=== PATIENT | female | born 1975 | race Hispanic/Latino ===

== ENCOUNTER 2024-04-18 14:13 | Emergency (ER) | payer SELFPAY ==
--- OUTSIDE RECORDS SUMMARY | 2024-04-18 14:17 | XMS REPORT | Continuity of Care Document ---
Author Name Unknown Address [address] [place] [address] thconnect Address [address] [place] [id number] Care Team Providers Care Manager Of Environmental Services Name Role Phone Unavailable Unavailable Unavailable
[2024-04-18 15:22] LABS: Absolute Lymphocytes (CBC) 1.3 K/uL (0.7-4.9); Absolute Monocytes 0.6 K/uL (0.1-1.3); Absolute Neutrophil 6.8 K/uL (1.8-8.0); Basophils % 0.4 % (0-1.3); Eosinophils % 0.3 % (0-4.4); Hematocrit 37.8 % (36.0-45.0); Hemoglobin 13.4 g/dL (12.0-15.0); Lymphocytes % 14.7 % (15.3-44.8); MCH 32.6 pg (27.0-35.0); MCHC 35.5 g/dL (32.0-36.0); MCV 91.9 fL (80-100); Monocytes % 6.9 % (3.3-12.3); Neutrophils % 77.7 % (41.7-73.7); Platelets 232 thou/uL (152-406); RBC Red Blood Cell Count 4.11 M/uL (3.86-4.86)
[2024-04-18] MEDS ORDERED: FENTANYL CITR 100 MCG/2 ML ONE (15:22)
[2024-04-18] MEDS ORDERED: NA CHLORIDE 0.9% 1,000 ML ONE (15:22)
[2024-04-18] MEDS ORDERED: CEFTRIAXONE 1000 MG/VIAL ONE (15:22)
[2024-04-18] MEDS ORDERED: PHENAZOPYRIDINE 100MG TAB PO ONE (15:22)
[2024-04-18] MEDS ORDERED: ONDANSETRON 4 MG/2 ML VIAL ONE (15:22)
[2024-04-18 15:23] LABS: Specific Gravity 1.005 (1.005-1.030)
[2024-04-18 15:26] LABS: Specific Gravity 1.005 (1.005-1.030); Sqamous Epithelial <5 /HPF (None Seen); Urine Bacteria <20 /HPF (<20); Urine Bilirubin NEGATIVE (Negative); Urine Blood 3+ (OVER) (Negative); Urine Clarity Extremely Turbid (Clear); Urine Color Colorless (Yellow); Urine Crystals Unidentified Few /HPF (None Seen); Urine Culture Reflex Order REFLEXED; Urine Glucose NEGATIVE (Negative); Urine Ketones NEGATIVE (Negative); Urine Microscopic Reflex YN ORDER UMIC; Urine Nitrite NEGATIVE (Negative); Urine Protein TRACE (Negative); Urine RBC 21-50 /HPF (None Seen); Urine Urobilinogen Normal (Normal); Urine WBC >50 /HPF (<5); Urine WBC Clump Rare /HPF (None Seen); Urine Yeast (Budding) Trace /HPF (None Seen)
[2024-04-18 15:40] LABS: Albumin 3.5 g/dL (3.4-5.0); Albumin/Globulin Ratio 0.9 (1.1-1.8); Anion Gap 7.7 mEq/L (5.0-15.0); Bilirubin Total 1.1 mg/dL (0.2-1.0); Globulin 3.8 g/dL (2.3-3.5); Potassium 3.7 mEq/L (3.5-5.1); Protein, Total 7.3 g/dL (6.4-8.2)
--- NOTE | 2024-04-18 16:19 | RAD REPORT ---
EXAMINATION: CT Stone Protocol CLINICAL INDICATION: Female, 48 years old. FLANK PAIN TECHNIQUE: CT abdomen and pelvis was performed, without IV contrast, as per department protocol. Axia l, sagittal and coronal reconstructions were obtained. One or more of the following dose reduction techniques were used: Automated exposure control, adjustment of the mA and kV according to the patien t size, and iterative reconstruction. Unless otherwise specified, incidental findings do not require dedicated imaging follow-up. COMPARISON: No prior exam. FINDINGS: The lack of intravenous contrast limits the sensitivity of this exam for evaluation of solid visceral organs, vascular structures, and retroperitoneum. LOWER CHEST: The visualized lung bases are clear. LIVER: Normal in size and contour. No focal lesion. BILIARY SYSTEM: No suspicious abnormalities. SPLEEN: Normal size. No focal lesion. PANCREAS: No mass, ductal dilation, or kaushik-pancreatic fluid. ADRENALS: Normal; no mass. KIDNEYS AND URETERS: Normal size and contour. No hydronephrosis. URINARY BLADDER: Normal contour. GASTROINTESTINAL TRACT: No evidence of bowel obstruction, significant free fluid, free air or abscess . APPENDIX: Normal appendix. LYMPH NODES: No lymphadenopathy. MUSCULOSKELETAL: No acute or suspicious osseous abnormality. ADDITIONAL FINDINGS: Anterior wall exophytic uterine fibroid. IMPRESSION: No acute or concerning abnormalities in the abdomen or pelvis, with evaluation limited by lack of IV contrast.
[2024-04-18] MEDS ORDERED: SMZ./TMP. 800/160 MG TABLET ONE (16:32)
[2024-04-18] MEDS ORDERED: CIPROFLOXACIN HCL 500 MG TAB ONE (16:32)
--- NOTE | 2024-04-18 16:32 | ER ---
Nurse's Notes [facility] Name: Misa Mc Age: 48 yrs Sex: Female : 1975 Arrival Date: 04/18/2024 Time: 14:13 Bed 2 Private MD: Diagnosis: Dysuria;UTI/ Urinary tract infection, site not specified;Acute cystitis with hematuria Presentation: 04/18 14:34 Chief complaint: Patient states: LOWER BACK PAIN AND URINARY PAIN WITH BLEEDING STARTED db YESTERDAY. Coronavirus screen: Client denies travel out of the [place] in the last 14 days. At this time, the client does not indicate any symptoms associated with coronavirus-19. Ebola Screen: Patient negative for fever greater than or equal to 101.5 degrees Fahrenheit, and additional compatible Ebola Virus Disease symptoms Patient denies exposure to infectious person. Patient denies travel to an Ebola-affected area in the 21 days before illness onset. No symptoms or risks identified at this time. Initial Sepsis Screen: Does the patient meet any 2 criteria? No. Patient's initial sepsis screen is negative. Does the patient have a suspected source of infection? No. Patient's initial sepsis screen is negative. Risk Assessment: Do you want to hurt yourself or someone else? Patient reports no desire to harm self or others. Onset of symptoms was April 18, 2024. 14:34 Method Of Arrival: Ambulatory db 14:34 Acuity: JAIRO 3 db Triage Assessment: 14:35 General: Appears in no apparent distress. comfortable, Behavior is calm, cooperative. db Pain: Complains of pain in low back area. Neuro: Level of Consciousness is awake, alert, obeys commands, Oriented to person, place, time, situation. : Reports BLOOD IN URINE. 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 - Infectious Disease History:: Denies. - Social history:: Smoking status: Patient denies any tobacco usage or history of. - Family history:: not pertinent. Screenin:44 [facility] ED Fall Risk Assessment (Adult) History of falling in the last 3 months, ld1 including since admission No falls in past 3 months (0 pts) Confusion or Disorientation No (0 pts) Intoxicated or Sedated No (0 pts) Impaired Gait No (0 pts) Mobility Assist Device Used No (0 pt) Altered Elimination No (0 pt) Score/Fall Risk Level 0 - 2 = Low Risk Oriented to surroundings, Maintained a safe environment, Educated pt \T\ family on fall prevention, incl call for assistance when getting out of bed, Assessed \T\ reinforced patient's understanding of fall precautions, Provided non-skid footwear, Hourly rounding (assess needs \T\ fall precautionary measures) done, Used ambulatory aids as needed (educated on \T\ assisted with), Used gait belt as appropriate. Abuse screen: Denies threats or abuse. Denies injuries from another. Nutritional screening: No deficits noted. Tuberculosis screening: No symptoms or risk factors identified. Assessment: 16:44 General: Appears in no apparent distress. comfortable, Behavior is calm, cooperative, ld1 appropriate for age. Pain: Complains of pain in pelvis Pain does not radiate. Pain currently is 8 out of 10 on a pain scale. Quality of pain is described as throbbing. Neuro: Level of Consciousness is awake, alert, obeys commands, Oriented to person, place, time, situation, Appropriate for age. Cardiovascular: Capillary refill < 3 seconds Patient's skin is warm and dry. Respiratory: Airway is patent Respiratory effort is even, unlabored. GI: Abdomen is round non-distended. : Reports burning with urination, urgency, urinary frequency, vaginal bleeding that is. EENT: No signs and/or symptoms were reported regarding the EENT system. Derm: No signs and/or symptoms reported regarding the dermatologic system. Vital Signs: 14:34 BP 108 / 74; Pulse 80; Resp 16; Temp 98.1; Pulse Ox 98% ; Height 5 ft. 5 in. ; db 16:44 BP 132 / 74; Pulse 84; Resp 18; Pulse Ox 99% on R/A; ld1 ED Course: 14:16 Patient arrived in ED. al6 14:17 Figueroa Easlye MD is Attending Physician. radha 14:35 Triage completed. db 14:37 Arm band placed on Patient placed. db 15:00 CT Stone Protocol In Process Unspecified. EDMS 15:17 Jojo Franklin, ROCÍO is Primary Nurse. ld1 15:17 Initial lab(s) drawn, by me, sent to lab. Inserted saline lock: 20 gauge in right zm antecubital area, using aseptic technique. Blood collected. Flushed with 10 mL NS. 15:18 Urine Culture Sent. zm 15:18 PREGU Sent. zm 15:18 Urinalysis w/ reflexes Sent. zm 15:18 Comprehensive Metabolic Panel Sent. zm 15:18 CBC with Diff Sent. zm 15:18 Urine collected: clean catch specimen, peyton colored, blood tinged. zm 16:44 Patient has correct armband on for positive identification. Placed in gown. Bed in low ld1 position. Call light in reach. Side rails up X2. billboard poster on. Pulse ox on. NIBP on. Door closed. Noise minimized. 16:44 No provider procedures requiring assistance completed. IV discontinued, intact, ld1 bleeding controlled, No redness/swelling at site. Administered Medications: 15:32 Drug: NS 0.9% IV 1000 ml IV at 1000 ml once; to be given as a bolus over 60 minutes ld1 Route: IV; Rate: 1000 ml; Site: right antecubital; 16:26 Follow up: IV Status: Completed infusion; IV Intake: 1000ml ld1 15:32 Drug: fentaNYL (PF) IVP 50 mcg IVP once Route: IVP; Site: right antecubital; ld1 16:26 Follow up: Response: No adverse reaction ld1 15:32 Drug: Ondansetron IVP 4 mg IVP once; over 2 minutes Route: IVP; Site: right antecubital;ld1 16:27 Follow up: Response: No adverse reaction ld1 15:32 Drug: Rocephin IV 1 grams IV at per protocol once; Given slow IV push per pharmacy ld1 instructions Route: IV; Rate: per protocol; Site: right antecubital; 16:27 Follow up: Response: No adverse reaction; IV Status: Completed infusion ld1 15:32 Drug: Phenazopyridine PO 200 mg PO once Route: PO; ld1 16:26 Follow up: Response: No adverse reaction ld1 16:37 Drug: Trimethoprim-Sulfamethoxazole PO (160 mg-800 mg (DS) 1 tablet PO once Route: PO; ld1 16:46 Follow up: Response: No adverse reaction ld1 16:38 Drug: Ciprofloxacin PO 500 mg PO once Route: PO; ld1 16:46 Follow up: Response: No adverse reaction ld1 Medication: 16:44 VIS not applicable for this client. ld1 Intake: 16:26 IV: 1000ml; Total: 1000ml. ld1 Outcome: 16:32 Discharge ordered by . radha 16:46 Discharged to home ambulatory, ld1 16:46 Condition: stable 16:46 Discharge instructions given to patient, Instructed on discharge instructions, follow up and referral plans. medication usage, Demonstrated understanding of instructions, follow-up care, medications, Prescriptions given X 3, 16:46 Patient left the ED. ld1 Addendum: 04/21/2024 12:19 Addendum: Culture Results: Positive urine culture. No further action required. Bacteria s s sensitive to prescribed antibiotic. Signatures: Dispatcher [employer] EDAR Figueroa Easley MD MD cha Blanchard, Shelby, RN RN ss Sims, Lauren, RN RN Love Anaya Danielle, RN RN Vivi [id number] Corrections: (The following items were deleted from the chart) 04/18 14:36 14:35 PMHx: None; wendy nguyen 15:19 15:18 Urine collected: clean catch specimen, clear, zm zm 15:21 15:18 Urine collected: clean catch specimen, clear, blood tinged, zm zm
--- NOTE | 2024-04-18 16:32 | EDPHYS ---
[facility] Name: Misa Mc Age: 48 yrs Sex: Female : 1975 Arrival Date: 04/18/2024 Time: 14:13 Bed 2 Private MD: ED Physician Figueroa Easley HPI: 04/18 14:40 This 48 yrs old Female presents to ER via Ambulatory with complaints of radha Urinary Problem, Vaginal Pain. 14:40 The patient presents with flank pain, on the right, on the left, bilaterally, urinary radha symptoms, dysuria, hematuria, urgency. Onset: The symptoms/episode began/occurred 3 day(s) ago. Modifying factors: The symptoms are alleviated by nothing, the symptoms are aggravated by movement, urinating. Associated signs and symptoms: The patient has no apparent associated signs or symptoms. Severity of symptoms: At their worst the symptoms were moderate, in the emergency department the symptoms are unchanged. The patient is sexually active, reportedly has a single partner. The patient has experienced similar episodes in the past, a few times. 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 - Infectious Disease History:: Denies. - Social history:: Smoking status: Patient denies any tobacco usage or history of. - Family history:: not pertinent. ROS: 14:40 Constitutional: Negative for fever, chills, and weight loss, Eyes: Negative for injury, radha pain, redness, and discharge, ENT: Negative for injury, pain, and discharge, Neck: Negative for injury, pain, and swelling, Cardiovascular: Negative for chest pain, palpitations, and edema, Respiratory: Negative for shortness of breath, cough, wheezing, and pleuritic chest pain, Back: Negative for injury and pain, MS/Extremity: Negative for injury and deformity, Skin: Negative for injury, rash, and discoloration, Neuro: Negative for headache, weakness, numbness, tingling, and seizure, Psych: Negative for depression, anxiety, suicide ideation, homicidal ideation, and hallucinations, Allergy/Immunology: Negative for hives, rash, and allergies, Endocrine: Negative for neck swelling, polydipsia, polyuria, polyphagia, and marked weight changes, 14:40 Abdomen/GI: Positive for abdominal pain, 14:40 : Positive for urinary symptoms, pelvic pain, flank pain, urinary frequency, hematuria, burning with urination, foul smelling urine, Exam: 14:40 Constitutional: This is a well developed, well nourished patient who is awake, alert, radha and in no acute distress. Head/Face: Normocephalic, atraumatic. Eyes: Pupils equal round and reactive to light, extra-ocular motions intact. Lids and lashes normal. Conjunctiva and sclera are non-icteric and not injected. Cornea within normal limits. Periorbital areas with no swelling, redness, or edema. ENT: Nares patent. No nasal discharge, no septal abnormalities noted. Tympanic membranes are normal and external auditory canals are clear. Oropharynx with no redness, swelling, or masses, exudates, or evidence of obstruction, uvula midline. Mucous membranes moist. Neck: Trachea midline, no thyromegaly or masses palpated, and no cervical lymphadenopathy. Supple, full range of motion without nuchal rigidity, or vertebral point tenderness. No Meningismus. Chest/axilla: Normal chest wall appearance and motion. Nontender with no deformity. No lesions are appreciated. Cardiovascular: Regular rate and rhythm with a normal S1 and S2. No gallops, murmurs, or rubs. Normal PMI, no JVD. No pulse deficits. Respiratory: Lungs have equal breath sounds bilaterally, clear to auscultation and percussion. No rales, rhonchi or wheezes noted. No increased work of breathing, no retractions or nasal flaring. Abdomen/GI: Soft, non-tender, with normal bowel sounds. No distension or tympany. No guarding or rebound. No evidence of tenderness throughout. Back: No spinal tenderness. No costovertebral tenderness. Full range of motion. Skin: Warm, dry with normal turgor. Normal color with no rashes, no lesions, and no evidence of cellulitis. MS/ Extremity: Pulses equal, no cyanosis. Neurovascular intact. Full, normal range of motion., bilateral aka Neuro: Awake and alert, GCS 15, oriented to person, place, time, and situation. Cranial nerves II-XII grossly intact. Motor strength 5/5 in all extremities. Sensory grossly intact. Cerebellar exam normal. Normal gait. Psych: Awake, alert, with orientation to person, place and time. Behavior, mood, and affect are within normal limits. Vital Signs: 14:34 BP 108 / 74; Pulse 80; Resp 16; Temp 98.1; Pulse Ox 98% ; Height 5 ft. 5 in. ; db 16:44 BP 132 / 74; Pulse 84; Resp 18; Pulse Ox 99% on R/A; ld1 MDM: 14:17 Medical Screening Exam initiated radha 14:44 Differential diagnosis: kidney stone, malignancy, Neoplasm nonspecific abdominal pain, radha urinary tract infection, vaginosis. Data reviewed: vital signs, nurses notes, lab test result(s), radiologic studies, CT scan. Consideration of Admission/Observation Escalation of care including admission/observation considered. I considered the following discharge prescriptions or medication management in the emergency department Medications were administered in the Emergency Department. See MAR. Independent interpretation of the following test(s) in the Emergency Department CT Scan: My interpretation is ct stone. 04/18 14:30 Order name: CBC with Diff; Complete Time: 16:08 [facility] 04/18 14:30 Order name: Comprehensive Metabolic Panel; Complete Time: 16:08 [facility] 04/18 14:30 Order name: Urinalysis w/ reflexes; Complete Time: 16:08 [facility] 04/18 14:30 Order name: PREGU; Complete Time: 16:08 [facility] 04/18 14:30 Order name: Urine Culture [facility] 04/18 14:30 Order name: CT Stone Protocol; Complete Time: 16:31 [facility] Administered Medications: 15:32 Drug: NS 0.9% IV 1000 ml IV at 1000 ml once; to be given as a bolus over 60 minutes ld1 Route: IV; Rate: 1000 ml; Site: right antecubital; 16:26 Follow up: IV Status: Completed infusion; IV Intake: 1000ml ld1 15:32 Drug: fentaNYL (PF) IVP 50 mcg IVP once Route: IVP; Site: right antecubital; ld1 16:26 Follow up: Response: No adverse reaction ld1 15:32 Drug: Ondansetron IVP 4 mg IVP once; over 2 minutes Route: IVP; Site: right antecubital;ld1 16:27 Follow up: Response: No adverse reaction ld1 15:32 Drug: Rocephin IV 1 grams IV at per protocol once; Given slow IV push per pharmacy ld1 instructions Route: IV; Rate: per protocol; Site: right antecubital; 16:27 Follow up: Response: No adverse reaction; IV Status: Completed infusion ld1 15:32 Drug: Phenazopyridine PO 200 mg PO once Route: PO; ld1 16:26 Follow up: Response: No adverse reaction ld1 16:37 Drug: Trimethoprim-Sulfamethoxazole PO (160 mg-800 mg (DS) 1 tablet PO once Route: PO; ld1 16:46 Follow up: Response: No adverse reaction ld1 16:38 Drug: Ciprofloxacin PO 500 mg PO once Route: PO; ld1 16:46 Follow up: Response: No adverse reaction ld1 Disposition Summary: 04/18/24 16:32 Discharge Ordered Notes: Location: Home radha Problem: new radha Symptoms: have improved radha Condition: Stable radha Diagnosis - Dysuria radha - UTI/ Urinary tract infection, site not specified radha - Acute cystitis with hematuria radha Followup: radha - With: Private Physician - When: 2 - 3 days - Reason: Recheck today's complaints, Continuance of care, Re-evaluation by your physician Discharge Instructions: - Discharge Summary Sheet radha - Dysuria radha - Urinary Tract Infection, Adult radha - Urinary Tract Infection, Adult, Isti-wo-[id number] [facility] - Antibiotic Medicine, Adult, [id number] [facility] Forms: - Medication Reconciliation Form radha - Antibiotic Education radha - Prescription Opioid Use radha - Patient Portal Instructions [facility] - Leadership Thank You Letter [facility] Prescriptions: - Pyridium 200 mg Oral Tablet - take 1 tablet ORAL route every 8 hours for 3 days; 9 tablet; Refills: 0, [facility] Product Selection Permitted - Cipro 500 mg Oral Tablet - take 1 tablet ORAL route every 12 hours for 7 days; 14 tablet; Refills: 0, [facility] Product Selection Permitted - Bactrim DS 800-160 mg Oral tablet - take 1 tablet ORAL route every 12 hours for 5 days; 10 tablet; Refills: 0, [facility] Product Selection Permitted Signatures: Dispatcher [employer] Figueroa Huggins MD MD cha Sims, Lauren, RN RN ld1 Marisol Eller RN RN db Corrections: (The following items were deleted from the chart) 14:31 14:31 CBC+H.LAB.BRZ ordered. EDMS EDMS 14: 14:31 COMPREHENSIVE METABOLIC PANEL+C.LAB.BRZ ordered. EDMS EDMS 14: 14:31 Urinalysis+U.LAB.BRZ ordered. EDMS EDMS 14: 14:31 Test, Urine+UC.LAB.BRZ ordered. EDMS EDMS 14: 14:31 Urine Culture+BA.LAB.BRZ ordered. EDMS EDMS : 14:31 Stone Protocol+CT.RAD.BRZ ordered. EDMS EDMS 14:36 14:35 PMHx: None; db db
[2024-04-18 16:51] VITALS: TEMP 98.1
[2024-04-18 16:52] VITALS: BP 132/74; O2SAT 99
== END 2024-04-18 16:46 | disposition home or self-care (01) ==
LOC: ER 14:13
DX: N30.01 Acute cystitis with hematuria (principal)
CPT/HCPCS: 36415; 74176; 76377; 80053; 81001; 81025; 85025; 87077; 87086; 87088; 87186; 96365; 96375; 99285; J0696; J2405; J3010; J7030

== ENCOUNTER 2024-06-13 09:25 | Emergency (ER) | payer SELFPAY ==
--- NOTE | 2024-06-13 09:49 | RAD REPORT ---
EXAM: CT brain without contrast HISTORY: STROKE ALERT COMPARISON: None TECHNIQUE: Multiple contiguous axial images were obtained and a CT of the brain without contrast. Sag ittal and coronal reformats were performed. One or more of the following dose reduction techniques were used: Automated exposure control, adjust ment of the mA and/or kV according to patient size, and/or iterative reconstruction. FINDINGS: No evidence of hydrocephalus, intracranial hemorrhage, or extra-axial fluid collection. The brain is normal in morphology. No evidence of midline shift or areas of brain edema. The calvarium is intact. The visualized paranasal sinuses and mastoid air cells are essentially clear . IMPRESSION: No evidence of acute intracranial abnormality. The findings were communicated with Figueroa Easley MD at 06/13/2024 9:46 AM by telephone.
[2024-06-13] MEDS ORDERED: ONDANSETRON 4 MG/2 ML VIAL ONE (09:57)
[2024-06-13] MEDS ORDERED: FOLIC ACID 5 MG/ML VIAL ONE (09:58)
[2024-06-13] MEDS ORDERED: NA CHLORIDE 0.9% 1,000 ML ONE (09:58)
[2024-06-13] MEDS ORDERED: TENECTEPLASE 50 MG/10 ML VIAL IV ONE (09:58)
--- NOTE | 2024-06-13 10:01 | EDPHYS ---
Physician Documentation [facility] Name: Misa Mc Age: 48 yrs Sex: Female : 1975 Arrival Date: 06/13/2024 Time: 09:25 Bed 6 Private MD: ED Physician Figueroa Easley HPI: 06/13 09:52 This 48 yrs old Female presents to ER via Unassigned with complaints of RIGHT radha FACE WEAKNESS, LEFT SIDE WEAK, 30 MIN PULP [employer]. 09:52 RIGHT FACE , LEFT BODY WEAK. The patient presents to the emergency department with radha weakness of the left upper extremity, left lower extremity, right side of the face, that is moderate, a speech or higher order brain function problem, aphasia, that is moderate, difficulty standing, the patient falls to the right, difficult walking, the patient is off balance. Onset: The symptoms/episode began/occurred just prior to arrival, at 09:20. Context: occurred at work, occurred while the patient was working. Associated signs and symptoms: Pertinent positives: dizziness, headache, blurred vision. Severity of symptoms: At their worst the symptoms were moderate in the emergency department the symptoms are unchanged. Patient's baseline: Neuro: alert and fully oriented. Current symptoms: headache, that is moderate, visual disturbance, blurred vision. Historical: - Allergies: 09:55 No Known Allergies; aa5 - Home Meds: 09:55 None [Active]; aa5 - PMHx: 09:55 CVA 2009; aa5 - Family history:: not pertinent. ROS: 09:52 Constitutional: Negative for fever, chills, and weight loss, Eyes: Negative for injury, radha pain, redness, and discharge, ENT: Negative for injury, pain, and discharge, Neck: Negative for injury, pain, and swelling, Cardiovascular: Negative for chest pain, palpitations, and edema, Respiratory: Negative for shortness of breath, cough, wheezing, and pleuritic chest pain, Abdomen/GI: Negative for abdominal pain, nausea, vomiting, diarrhea, and constipation, Back: Negative for injury and pain, : Negative for injury, bleeding, discharge, and swelling, MS/Extremity: Negative for injury and deformity, Skin: Negative for injury, rash, and discoloration, Psych: Negative for depression, anxiety, suicide ideation, homicidal ideation, and hallucinations, Allergy/Immunology: Negative for hives, rash, and allergies, Endocrine: Negative for neck swelling, polydipsia, polyuria, polyphagia, and marked weight changes, Hematologic/Lymphatic: Negative for swollen nodes, abnormal bleeding, and unusual bruising, 09:52 Neuro: Positive for dizziness, headache, numbness, weakness, of the face, left arm and left leg, Exam: :52 Constitutional: This is a well developed, well nourished patient who is awake, alert, radha and in no acute distress. Head/Face: Normocephalic, atraumatic. Eyes: Pupils equal round and reactive to light, extra-ocular motions intact. Lids and lashes normal. Conjunctiva and sclera are non-icteric and not injected. Cornea within normal limits. Periorbital areas with no swelling, redness, or edema. ENT: Nares patent. No nasal discharge, no septal abnormalities noted. Tympanic membranes are normal and external auditory canals are clear. Oropharynx with no redness, swelling, or masses, exudates, or evidence of obstruction, uvula midline. Mucous membranes moist. Neck: Trachea midline, no thyromegaly or masses palpated, and no cervical lymphadenopathy. Supple, full range of motion without nuchal rigidity, or vertebral point tenderness. No Meningismus. Chest/axilla: Normal chest wall appearance and motion. Nontender with no deformity. No lesions are appreciated. Cardiovascular: Regular rate and rhythm with a normal S1 and S2. No gallops, murmurs, or rubs. Normal PMI, no JVD. No pulse deficits. Respiratory: Lungs have equal breath sounds bilaterally, clear to auscultation and percussion. No rales, rhonchi or wheezes noted. No increased work of breathing, no retractions or nasal flaring. Abdomen/GI: Soft, non-tender, with normal bowel sounds. No distension or tympany. No guarding or rebound. No evidence of tenderness throughout. Back: No spinal tenderness. No costovertebral tenderness. Full range of motion. Skin: Warm, dry with normal turgor. Normal color with no rashes, no lesions, and no evidence of cellulitis. MS/ Extremity: Pulses equal, no cyanosis. Neurovascular intact. Full, normal range of motion., bilateral aka Psych: Awake, alert, with orientation to person, place and time. Behavior, mood, and affect are within normal limits. 09:52 ECG was reviewed by the Attending Physician. 10:58 ECG was reviewed by the Attending Physician. [facility] Vital Signs: 10:05 BP 115 / 64; Pulse 68; Resp 15 S; Temp 97.8(TE); Pulse Ox 99% on R/A; Weight 64.5 kg aa5 (M); 11:10 aa5 11:10 See Tenecteplase administration and assessment flow sheet for complete VS and aa5 documentation. NIH Stroke Scale Scores: 09:33 NIHSS Score: 5 aa5 09:55 NIHSS Score: 5 aa5 10:00 NIHSS Score: 9 radha 11:10 NIHSS Score: 5 aa5 MDM: 09:34 Medical Screening Exam initiated radha 09:57 Differential Diagnosis altered mental status, sepsis. Data reviewed: vital signs, [facility] nurses notes, EMS record, lab test result(s), EKG, radiologic studies, CT scan, MRI, plain films. Consideration of Admission/Observation Escalation of care including admission/observation considered. I considered the following discharge prescriptions or medication management in the emergency department Medications were administered in the Emergency Department. See MAR. Independent interpretation of the following test(s) in the Emergency Department EKG: See my EKG interpretation above. Discussion of test interpretation with radiology: I had a discussion with radiology regarding a test interpretation. DR MACEDO , NAD CT BRAIN , NO LVO. Historians other than the Patient: EMS: EMS WELL INFORMED. Care significantly affected by the following chronic conditions: NONE. Counseling: I had a detailed discussion with the patient and/or guardian regarding the historical points, exam findings, and any diagnostic results supporting the discharge/admit diagnosis, lab results, radiology results, the need for outpatient follow up, the need to transfer to another facility, for higher level of care, [facility] does not immediately have the required specialist. 06/13 09:37 Order name: Basic Metabolic Panel; Complete Time: 10:35 [facility] 06/13 09:37 Order name: CBC with Diff; Complete Time: 10:35 [facility] 06/13 09:37 Order name: LFT's; Complete Time: 10:35 [facility] 06/13 09:37 Order name: Magnesium; Complete Time: 10:35 [facility] 06/13 09:37 Order name: NT PRO-BNP; Complete Time: 10:35 [facility] 06/13 09:37 Order name: PT-INR; Complete Time: 10:06 [facility] 06/13 09:37 Order name: Troponin HS; Complete Time: 10:35 [facility] 06/13 09:59 Order name: CREATININE WHOLE BLOOD; Complete Time: 10:06 [facility] 06/13 09:37 Order name: CT Stroke Brain w/o Contrast; Complete Time: 10:06 [facility] 06/13 09:37 Order name: CT Head Angio; Complete Time: 10:35 [facility] 06/13 09:37 Order name: CT Neck Angio; Complete Time: 10:35 [facility] 06/13 09:37 Order name: EKG; Complete Time: 09:37 [facility] 06/13 09:37 Order name: Cardiac monitoring; Complete Time: :56 [facility] 06/13 09:37 Order name: EKG - Nurse/Tech; Complete Time: :56 [facility] 06/13 09:37 Order name: IV Saline Lock; Complete Time: 09:56 [facility] 06/13 09:37 Order name: Labs collected and sent; Complete Time: : [facility] 06/13 09:37 Order name: O2 Per Protocol; Complete Time: : [facility] 06/13 09:37 Order name: O2 Sat Monitoring; Complete Time: : [facility] 06/13 10:37 Order name: EKG - Nurse/Tech; Complete Time: 10:57 [facility] EC:52 Rate is 77 beats/min. Rhythm is regular. QRS [place] is Normal. MO interval is normal. QRS radha interval is normal. No Q waves. T waves are Normal. No ST changes noted. Clinical impression: Normal ECG and No evidence of ischemia. Interpreted by me. Reviewed by me. 10:58 Rate is 74 beats/min. Rhythm is regular. QRS [place] is Normal. MO interval is normal. QRS radha interval is normal. QT interval is normal. No Q waves. T waves are Normal. No ST changes noted. Clinical impression: Normal ECG and No evidence of ischemia. Interpreted by me. Reviewed by me. Administered Medications: 10:04 Drug: foLIC Acid IVPB 1 mg IVPB once Route: IVPB; Site: right antecubital; aa5 10:04 Drug: NS 0.9% IV 1000 ml IV at 1 bolus Per protocol; to be given as a bolus over 60 aa5 minutes Route: IV; Rate: 1 bolus; Site: right antecubital; 11:04 Follow up: IV Status: Completed infusion; IV Intake: 1000ml aa5 10:04 Drug: Ondansetron IVP 8 mg IVP once; over 2 minutes Route: IVP; Site: right antecubital;aa5 10:10 Follow up: Response: No adverse reaction aa5 10:06 Drug: TNK FOR STROKE - Tenecteplase IV (Administer 10 ml NS flush BEFORE and aa5 AFTER tenecteplase) 17.5 mg IV at per protocol once; 0.25mg/kg, MAX DOSE 25 mg, IVP over 5 seconds {Co-Signature: es3 (Sydnee Ivory RN).} Route: IV; Rate: per protocol; Site: right antecubital; 10:42 Follow up: Response: No adverse reaction aa5 Disposition Summary: 06/13/24 10:00 Transfer Ordered Notes: Transfer Location: [facility] radha Reason: Higher level of care radha Condition: Serious radha Problem: new radha Symptoms: are unchanged radha Accepting Physician: TO [facility](06/13/24 11:11) aa5 Diagnosis - Cerebral infarction, unspecified - ACUTE, LEFT SIDE WEAKNESS, RIGHT FACIAL DROOL radha Forms: - Medication Reconciliation Form radha - SBAR form radha Critical care time excluding procedures: 09:58 Critical care time: Bedside Care: 30 minutes, Consultation: 15 minutes, Family radha Intervention: 10 minutes. Total time: 55 minutes NIH Stroke Scale - NIH Stroke Score Date: 06/13/2024 Time: 09:33 Total Score = 5 10. Dysarthria (speech clarity - read or repeat words) - 0(Normal) 11. Extinction and Inattention (visual/tactile/auditory/spatial/personal) - 0(No abnormality) 1a. Level of Consciousness (LOC) - 0(Alert) 1b. Level of Consciousness (LOC) (Month \T\ Age) - 0(Both) 1c. LOC Commands (Open \T\ Closes Eyes/Rn Gastroenterology) - 0(Both) 2. Best Gaze (Lateral Gaze Paresis) - 0(Normal) 3. Visual Field Loss - 0(No visual loss) 4. Facial Palsy - 1(Minor Paralysis) 5a. Left Arm: Motor (10-second hold) - 1(Drift) 5b. Right Arm: Motor (10-second hold) - 0(No drift) 6a. Left Leg: Motor (5-second hold - always test supine) - 2(Drift, some effort against gravity) 6b. Right Leg: Motor (5-second hold - always test supine) - 0(No drift) 7. Limb Ataxia (finger/nose \T\ heel/liriano - test with eyes open) - 0(Absent) 8. Sensory Loss (pinprick arms/legs/face) - 1(Mild to moderate loss) 9. Best Language: Aphasia (description/naming/reading) - 0(No aphasia) Initials: aa5 NIH Stroke Scale - NIH Stroke Score Date: 06/13/2024 Time: 09:55 Total Score = 5 10. Dysarthria (speech clarity - read or repeat words) - 0(Normal) 11. Extinction and Inattention (visual/tactile/auditory/spatial/personal) - 0(No abnormality) 1a. Level of Consciousness (LOC) - 0(Alert) 1b. Level of Consciousness (LOC) (Month \T\ Age) - 0(Both) 1c. LOC Commands (Open \T\ Closes Eyes/Rn Gastroenterology) - 0(Both) 2. Best Gaze (Lateral Gaze Paresis) - 0(Normal) 3. Visual Field Loss - 0(No visual loss) 4. Facial Palsy - 1(Minor Paralysis) 5a. Left Arm: Motor (10-second hold) - 1(Drift) 5b. Right Arm: Motor (10-second hold) - 0(No drift) 6a. Left Leg: Motor (5-second hold - always test supine) - 2(Drift, some effort against gravity) 6b. Right Leg: Motor (5-second hold - always test supine) - 0(No drift) 7. Limb Ataxia (finger/nose \T\ heel/liriano - test with eyes open) - 0(Absent) 8. Sensory Loss (pinprick arms/legs/face) - 1(Mild to moderate loss) 9. Best Language: Aphasia (description/naming/reading) - 0(No aphasia) Initials: aa5 NIH Stroke Scale - NIH Stroke Score Date: 06/13/2024 Time: 10:00 Total Score = 9 10. Dysarthria (speech clarity - read or repeat words) - 1(Mild to Moderate) 11. Extinction and Inattention (visual/tactile/auditory/spatial/personal) - 0(No abnormality) 1a. Level of Consciousness (LOC) - 0(Alert) 1b. Level of Consciousness (LOC) (Month \T\ Age) - 0(Both) 1c. LOC Commands (Open \T\ Closes Eyes/Rn Gastroenterology) - 0(Both) 2. Best Gaze (Lateral Gaze Paresis) - 0(Normal) 3. Visual Field Loss - 0(No visual loss) 4. Facial Palsy - 2(Partial paralysis) 5a. Left Arm: Motor (10-second hold) - 1(Drift) 5b. Right Arm: Motor (10-second hold) - 0(No drift) 6a. Left Leg: Motor (5-second hold - always test supine) - 1(Drift) 6b. Right Leg: Motor (5-second hold - always test supine) - 0(No drift) 7. Limb Ataxia (finger/nose \T\ heel/liriano - test with eyes open) - 2(Present in two limbs) 8. Sensory Loss (pinprick arms/legs/face) - 1(Mild to moderate loss) 9. Best Language: Aphasia (description/naming/reading) - 1(Mild to moderate aphasia) Initials: [facility] NIH Stroke Scale - NIH Stroke Score Date: 06/13/2024 Time: 11:10 Total Score = 5 10. Dysarthria (speech clarity - read or repeat words) - 0(Normal) 11. Extinction and Inattention (visual/tactile/auditory/spatial/personal) - 0(No abnormality) 1a. Level of Consciousness (LOC) - 0(Alert) 1b. Level of Consciousness (LOC) (Month \T\ Age) - 0(Both) 1c. LOC Commands (Open \T\ Closes Eyes/Rn Gastroenterology) - 0(Both) 2. Best Gaze (Lateral Gaze Paresis) - 0(Normal) 3. Visual Field Loss - 0(No visual loss) 4. Facial Palsy - 1(Minor Paralysis) 5a. Left Arm: Motor (10-second hold) - 1(Drift) 5b. Right Arm: Motor (10-second hold) - 0(No drift) 6a. Left Leg: Motor (5-second hold - always test supine) - 2(Drift, some effort against gravity) 6b. Right Leg: Motor (5-second hold - always test supine) - 0(No drift) 7. Limb Ataxia (finger/nose \T\ heel/liriano - test with eyes open) - 0(Absent) 8. Sensory Loss (pinprick arms/legs/face) - 1(Mild to moderate loss) 9. Best Language: Aphasia (description/naming/reading) - 0(No aphasia) Initials: aa5 Signatures: Dispatcher [employer] EDMS Figueroa Easley MD MD cha Calderon, Audri, RN RN aa5 Sydnee Ivory RN es3 Corrections: (The following items were deleted from the chart) 09:37 09:37 BASIC METABOLIC PANEL+C.LAB.BRZ ordered. EDMS EDMS 09:37 09:37 CBC+H.LAB.BRZ ordered. EDMS EDMS 09:37 09:37 HEPATIC FUNCTION+C.LAB.BRZ ordered. EDMS EDMS 09:37 09:37 MAGNESIUM+C.LAB.BRZ ordered. EDMS EDMS 09:37 09:37 PROBNP+C.LAB.BRZ ordered. EDMS EDMS 09:37 09:37 PROTIME (+INR)+COAG.LAB.BRZ ordered. EDMS EDMS 09:37 09:37 Troponin High Sensitivity+C.LAB.BRZ ordered. EDMS EDMS 09:37 09:37 Urinalysis+U.LAB.BRZ ordered. EDMS EDMS 09:37 09:37 TEST, SERUM+SC.LAB.BRZ ordered. EDMS EDMS 09:37 09:37 Neck Angio+CT.RAD.BRZ ordered. EDMS EDMS 09:38 09:37 MR STROKE PROTOCOL+MRI.RAD.BRZ ordered. EDMS EDMS 10:24 09:55 PMHx: Seizure; aa5 aa5 11:00 10:37 Misc. Order ordered. [facility] aa5 11:11 10:00 TO [facility] aa5
[2024-06-13 10:02] LABS: PT Prothrombin Time 11.9 SECONDS (9.4-12.5); Protime INR 1.13
[2024-06-13 10:10] LABS: ALT/SGPT 22 U/L (13-56); AST/SGOT 13 U/L (15-37); Albumin 3.7 g/dL (3.4-5.0); Albumin/Globulin Ratio 0.9 (1.1-1.8); Alkaline Phosphatase 64 U/L (45-117); Anion Gap 8.7 mEq/L (5.0-15.0); BUN Blood Urea Nitrogen 19 mg/dL (7-18); Bicarbonate 27 mEq/L (21-32); Bilirubin Direct 0.3 mg/dL (0-0.2); Bilirubin Indirect, Calculated 0.7 mg/dL (0.2-0.8); Globulin 3.9 g/dL (2.3-3.5); Glomerular Filtration Rate 104 ml/min (=/>90); Glucose Level 100 mg/dL (74-106); Magnesium 1.9 mg/dL (1.6-2.4); NT PRO-BNP 29 pg/mL (<125); Potassium 3.7 mEq/L (3.5-5.1); Protein, Total 7.6 g/dL (6.4-8.2); Sodium Level 139 mEq/L (136-145)
[2024-06-13 10:12] LABS: Troponin High Sensitivity < 3.0 pg/mL (<58.9)
--- NOTE | 2024-06-13 10:17 | RAD REPORT ---
EXAMINATION: CTA HEAD CLINICAL INDICATION: TIA TECHNIQUE: Axial CT images were obtained through the head after intravenous contrast utilizing angiog raphic protocol with 3D post-processing (maximum intensity projection images, volume rendered images and/or shaded surface rendered images). One or more of the following dose reduction technique s were used: Automated exposure control, adjustment of the mA and/or kV according to patient size, and/or iterative reconstruction. Unless otherwise specified, incidental findings do not require dedic ated imaging follow-up. COMPARISON: Noncontrast CT head same date FINDINGS: ICA: The petrous, cavernous, and supraclinoid segments of the bilateral internal carotid arteries are normal. The ophthalmic artery origins are visualized and normal. The posterior communicating arteries are patent. MERCY: Anterior cerebral arteries are normal bilaterally. The anterior communicating artery is patent. MCA: Middle cerebral arteries are normal bilaterally. [place] PINION ADJUSTER: Posterior cerebral arteries are normal bilaterally. Vertebrobasilar: The vertebral arteries are patent. The basilar artery is normal in appearance. 3D images confirm these findings. IMPRESSION: No significant flow abnormality is identified.
--- NOTE | 2024-06-13 10:22 | RAD REPORT ---
EXAMINATION: CTA NECK CLINICAL INDICATION: PAIN TECHNIQUE: Axial CT images were obtained from the aortic arch to the skull base after intravenous con trast utilizing angiographic protocol with 3D post-processing (maximum intensity projection images, volume rendered images and/or shaded surface rendered images). One or more of the following dose redu ction techniques were used: Automated exposure control, adjustment of the mA and/or kV according to patient size, and/or iterative reconstruction. Unless otherwise specified, incidental findings do not require dedicated imaging follow-up. COMPARISON: No prior exam. FINDINGS: AORTA: The imaged aortic arch is normal. CCA: The common carotid arteries are patent and normal in caliber. ICA/ECA: There is no evidence of significant carotid stenosis bilaterally. Slight irregularity is see n of the left carotid bulb laterally which may indicate small nonflow limiting dissection is present. VERTEBRAL: The cervical vertebral arteries are patent. The vertebral arteries are codominant. SOFT TISSUE: No significant neck soft tissue abnormalities. The visualized lung apices are clear. 3D images confirm these findings. IMPRESSION: No significant flow abnormality detected. Subtle irregularity in the region of the left carotid bulb laterally could indicate a small focal dissection, which does not cause any flow alteration. NASCET criteria used. Mild 0-49% stenosis Moderate 50-69% stenosis Severe 70-99% stenosis
[2024-06-13 10:24] LABS: Absolute Lymphocytes (CBC) 2.1 K/uL (0.7-4.9); Absolute Monocytes 0.3 K/uL (0.1-1.3); Absolute Neutrophil 3.1 K/uL (1.8-8.0); Basophils % 0.5 % (0-1.3); Eosinophils % 0.6 % (0-4.4); Hematocrit 41.7 % (36.0-45.0); Hemoglobin 15.3 g/dL (12.0-15.0); MCH 33.1 pg (27.0-35.0); MCHC 36.7 g/dL (32.0-36.0); MCV 90.4 fL (80-100); MPV 9.5 fL (7.6-11.3); Neutrophils % 54.9 % (41.7-73.7); Nucleated Red Blood Cells % 0.1 % (0-0); Platelets 250 thou/uL (152-406); RBC Red Blood Cell Count 4.61 M/uL (3.86-4.86); Red Cell Distribution Width 14.7 % (12.1-15.2)
--- NOTE | 2024-06-13 11:12 | ER ---
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 09:33 Coronavirus screen: At this time, the client does not indicate any symptoms associated aa5 with coronavirus-19. Ebola Screen: Patient denies travel to an Ebola-affected area in the 21 days before illness onset. An acute neurological deficit is present. Initial Sepsis Screen: Does the patient meet any 2 criteria? No. Patient's initial sepsis screen is negative. Does the patient have a suspected source of infection? No. Patient's initial sepsis screen is negative. Risk Assessment: Do you want to hurt yourself or someone else? Patient reports no desire to harm self or others. Onset of symptoms was June 13, 2024. 09:33 Acuity: JAIRO 2 aa5 09:33 Method Of Arrival: EMS: [facility] aa5 Stroke Activation: Symptom onset < 3 hours Physician: ED Attending; Name: ; Notified At: ; Arrived At: Physician: Mid-Level Provider; Name: ; Notified At: ; Arrived At: Physician: [not used]; Name: ; Notified At: ; Arrived At: Physician: [not used]; Name: ; Notified At: ; Arrived At: Physician: [not used]; Name: ; Notified At: ; Arrived At: Historical: - Allergies: 09:55 No Known Allergies; aa5 - Home Meds: :55 None [Active]; aa5 - PMHx: 09:55 CVA 2009; aa5 - Family history:: not pertinent. Screenin:00 [facility] ED Fall Risk Assessment (Adult) History of falling in the last 3 months, aa5 including since admission No falls in past 3 months (0 pts) Confusion or Disorientation No (0 pts) Intoxicated or Sedated No (0 pts) Impaired Gait Yes (1 pt) Mobility Assist Device Used No (0 pt) Altered Elimination No (0 pt) Score/Fall Risk Level 0 - 2 = Low Risk Oriented to surroundings, Maintained a safe environment, Educated pt \\T\\ family on fall prevention, incl call for assistance when getting out of bed, Assessed \\T\\ reinforced patient's understanding of fall precautions. Abuse screen: Denies threats or abuse. Nutritional screening: No deficits noted. Tuberculosis screening: No symptoms or risk factors identified. Assessment: 09:33 VAN Scoring: Arm Drift: Severe drift Visual Disturbance: No visual disturbance noted. aa5 Aphasia: No aphasia noted. Neglect: No neglect noted. 09:33 General: Appears comfortable, Behavior is calm, cooperative. Pain: Complains of pain in aa5 head Pain currently is 5 out of 10 on a pain scale. Quality of pain is described as aching, Pain began today Is continuous. 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 Cardiovascular: Heart tones S1 S2 present Rhythm is sinus rhythm. Respiratory: Airway is patent Respiratory effort is even, unlabored, Respiratory pattern is regular, symmetrical. GI: Abdomen is flat, non-distended, Bowel sounds present X 4 quads. Abd is soft and non tender X 4 quads. : No signs and/or symptoms were reported regarding the genitourinary system. EENT: No signs and/or symptoms were reported regarding the EENT system. Derm: Skin is pink, warm \\T\\ dry. Musculoskeletal: No signs and/or symptoms reported regarding the musculoskeletal system. 09:55 Reassessment: Pt back from CT scan . aa5 09:55 Reassessment: Patient is alert, oriented x 3, equal unlabored respirations, skin aa5 warm/dry/pink. 10:00 TNKase (Tenecteplase) Screening: Indications: No evidence of intracranial hemorrhage or aa5 CT of head and no evidence of peripheral hemorrhage or recent CVA: Yes. 10:00 Reassessment: TNK administration consent form signed by patient . aa5 10:05 Reassessment: Patient is alert, oriented x 3, equal unlabored respirations, skin aa5 warm/dry/pink. 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 Cardiovascular: Rhythm is sinus rhythm. 10:21 [place] Swallow Protocol Exclusion Criteria: Unable to remain alert for testing: No NPO aa5 for medical/surgical reason by provider order No Head-of-bed restricted <30 degrees Tracheostomy tube present No No thin liquids due to preexisting dysphagia/baseline modified diet thickened liquids No Exclusion Criteria Result: Proceed Brief Cognitive Screen What is your name? Normal, Where are you right now? Normal, What year is it? Normal. Oral Mechanism Examination Facial Symmetry: Abnormal Motion: Normal, Lip Closure: Abnormal Oral Mechanism Result: Abnormal: abnormal. 3 oz Water Swallow Challenge: Pt able to drink all water without stopping, coughing, choking or throat clearing: No Result: FAIL MD Notified: Figueroa Easley MD. 10:37 Reassessment: Patient is alert, oriented x 3, equal unlabored respirations, skin aa5 warm/dry/pink. Pt crying, stating "I am scared", pt also started c/o chest pain, MD was notified. Pt was verbally reassured by ER staff and appears more calm now. . 10:50 Reassessment: Repeat EKG completed by ER staff . aa5 11:05 Reassessment: Assisted with bedpan for elimination needs, voided x 1. . aa5 11:10 Reassessment: Patient is alert, oriented x 3, equal unlabored respirations, skin aa5 warm/dry/pink. 11:10 Reassessment: See TNK administration and assessment flow sheet for complete NIHSS Score aa5 documentation. . Vital Signs: 10:05 BP 115 / 64; Pulse 68; Resp 15 S; Temp 97.8(TE); Pulse Ox 99% on R/A; Weight 64.5 kg aa5 (M); 11:10 aa5 11:10 See Tenecteplase administration and assessment flow sheet for complete VS and aa5 documentation. NIH Stroke Scale Scores: 09:33 NIHSS Score: 5 aa5 09:55 NIHSS Score: 5 aa5 10:00 NIHSS Score: 9 radha 11:10 NIHSS Score: 5 aa5 ED Course: 09:33 Patient arrived in ED. ss 09:33 Arm band placed on. aa5 09:33 Patient has correct armband on for positive identification. Placed in gown. Bed in low aa5 position. Call light in reach. Side rails up X2. Client placed on continuous cardiac and pulse oximetry monitoring. NIBP monitoring applied. bus driver/monitor on. Pulse ox on. NIBP on. 09:34 Figueroa Easley MD is Attending Physician. radha 09:40 Initial lab(s) drawn, by me, sent to lab. zm 09:47 CT Stroke Brain w/o Contrast In Process Unspecified. EDMS 09:48 CT Head Angio In Process Unspecified. EDMS 09:48 CT Neck Angio In Process Unspecified. EDMS 09:56 Carlota Ferrell, ROCÍO is Primary Nurse. aa5 10:11 Inserted saline lock: 18 gauge in left antecubital area, using aseptic technique. Blood zm collected. Flushed with 10 mL NS. 10:12 Maintain EMS IV. Dressing intact. Good blood return noted. Site clean \\T\\ dry. Gauge \\T\\ zm site: 18g RAC. Flushed with 10 mL NS. 10:20 Triage completed. aa5 11:10 No provider procedures requiring assistance completed. Patient transferred, IV remains aa5 in place. Administered Medications: 10:04 Drug: foLIC Acid IVPB 1 mg IVPB once Route: IVPB; Site: right antecubital; aa5 10:04 Drug: NS 0.9% IV 1000 ml IV at 1 bolus Per protocol; to be given as a bolus over 60 aa5 minutes Route: IV; Rate: 1 bolus; Site: right antecubital; 11:04 Follow up: IV Status: Completed infusion; IV Intake: 1000ml aa5 10:04 Drug: Ondansetron IVP 8 mg IVP once; over 2 minutes Route: IVP; Site: right antecubital;aa5 10:10 Follow up: Response: No adverse reaction aa5 10:06 Drug: TNK FOR STROKE - Tenecteplase IV (Administer 10 ml NS flush BEFORE and aa5 AFTER tenecteplase) 17.5 mg IV at per protocol once; 0.25mg/kg, MAX DOSE 25 mg, IVP over 5 seconds {Co-Signature: es3 (Cachorro, Sydnee RN).} Route: IV; Rate: per protocol; Site: right antecubital; 10:42 Follow up: Response: No adverse reaction aa5 Medication: 10:38 VIS not applicable for this client. aa5 Intake: 11:04 IV: 1000ml; Total: 1000ml. aa5 Outcome: 10:00 ER care complete, transfer ordered by MD. garcia 11:10 Transferred by helicopter to [facility], Transfer form completed. aa5 X-rays sent w/ patient. Note: Report was given to [facility] ER triage nurse and to [facility] flight. 11:10 Condition: stable 11:10 Instructed on the need for transfer, Demonstrated understanding of instructions, 11:11 Patient left the ED. aa5 NIH Stroke Scale - NIH Stroke Score Date: 06/13/2024 Time: 09:33 Total Score = 5 10. Dysarthria (speech clarity - read or repeat words) - 0(Normal) 11. Extinction and Inattention (visual/tactile/auditory/spatial/personal) - 0(No abnormality) 1a. Level of Consciousness (LOC) - 0(Alert) 1b. Level of Consciousness (LOC) (Month \\T\\ Age) - 0(Both) 1c. LOC Commands (Open \\T\\ Closes Eyes/Inverter And Clipper) - 0(Both) 2. Best Gaze (Lateral Gaze Paresis) - 0(Normal) 3. Visual Field Loss - 0(No visual loss) 4. Facial Palsy - 1(Minor Paralysis) 5a. Left Arm: Motor (10-second hold) - 1(Drift) 5b. Right Arm: Motor (10-second hold) - 0(No drift) 6a. Left Leg: Motor (5-second hold - always test supine) - 2(Drift, some effort against gravity) 6b. Right Leg: Motor (5-second hold - always test supine) - 0(No drift) 7. Limb Ataxia (finger/nose \\T\\ heel/liriano - test with eyes open) - 0(Absent) 8. Sensory Loss (pinprick arms/legs/face) - 1(Mild to moderate loss) 9. Best Language: Aphasia (description/naming/reading) - 0(No aphasia) Initials: aa5 NIH Stroke Scale - NIH Stroke Score Date: 06/13/2024 Time: 09:55 Total Score = 5 10. Dysarthria (speech clarity - read or repeat words) - 0(Normal) 11. Extinction and Inattention (visual/tactile/auditory/spatial/personal) - 0(No abnormality) 1a. Level of Consciousness (LOC) - 0(Alert) 1b. Level of Consciousness (LOC) (Month \\T\\ Age) - 0(Both) 1c. LOC Commands (Open \\T\\ Closes Eyes/Inverter And Clipper) - 0(Both) 2. Best Gaze (Lateral Gaze Paresis) - 0(Normal) 3. Visual Field Loss - 0(No visual loss) 4. Facial Palsy - 1(Minor Paralysis) 5a. Left Arm: Motor (10-second hold) - 1(Drift) 5b. Right Arm: Motor (10-second hold) - 0(No drift) 6a. Left Leg: Motor (5-second hold - always test supine) - 2(Drift, some effort against gravity) 6b. Right Leg: Motor (5-second hold - always test supine) - 0(No drift) 7. Limb Ataxia (finger/nose \\T\\ heel/liriano - test with eyes open) - 0(Absent) 8. Sensory Loss (pinprick arms/legs/face) - 1(Mild to moderate loss) 9. Best Language: Aphasia (description/naming/reading) - 0(No aphasia) Initials: aa5 NIH Stroke Scale - NIH Stroke Score Date: 06/13/2024 Time: 10:00 Total Score = 9 10. Dysarthria (speech clarity - read or repeat words) - 1(Mild to Moderate) 11. Extinction and Inattention (visual/tactile/auditory/spatial/personal) - 0(No abnormality) 1a. Level of Consciousness (LOC) - 0(Alert) 1b. Level of Consciousness (LOC) (Month \\T\\ Age) - 0(Both) 1c. LOC Commands (Open \\T\\ Closes Eyes/Inverter And Clipper) - 0(Both) 2. Best Gaze (Lateral Gaze Paresis) - 0(Normal) 3. Visual Field Loss - 0(No visual loss) 4. Facial Palsy - 2(Partial paralysis) 5a. Left Arm: Motor (10-second hold) - 1(Drift) 5b. Right Arm: Motor (10-second hold) - 0(No drift) 6a. Left Leg: Motor (5-second hold - always test supine) - 1(Drift) 6b. Right Leg: Motor (5-second hold - always test supine) - 0(No drift) 7. Limb Ataxia (finger/nose \\T\\ heel/liriano - test with eyes open) - 2(Present in two limbs) 8. Sensory Loss (pinprick arms/legs/face) - 1(Mild to moderate loss) 9. Best Language: Aphasia (description/naming/reading) - 1(Mild to moderate aphasia) Initials: radha NIH Stroke Scale - NIH Stroke Score Date: 06/13/2024 Time: 11:10 Total Score = 5 10. Dysarthria (speech clarity - read or repeat words) - 0(Normal) 11. Extinction and Inattention (visual/tactile/auditory/spatial/personal) - 0(No abnormality) 1a. Level of Consciousness (LOC) - 0(Alert) 1b. Level of Consciousness (LOC) (Month \\T\\ Age) - 0(Both) 1c. LOC Commands (Open \\T\\ Closes Eyes/Inverter And Clipper) - 0(Both) 2. Best Gaze (Lateral Gaze Paresis) - 0(Normal) 3. Visual Field Loss - 0(No visual loss) 4. Facial Palsy - 1(Minor Paralysis) 5a. Left Arm: Motor (10-second hold) - 1(Drift) 5b. Right Arm: Motor (10-second hold) - 0(No drift) 6a. Left Leg: Motor (5-second hold - always test supine) - 2(Drift, some effort against gravity) 6b. Right Leg: Motor (5-second hold - always test supine) - 0(No drift) 7. Limb Ataxia (finger/nose \\T\\ heel/liriano - test with eyes open) - 0(Absent) 8. Sensory Loss (pinprick arms/legs/face) - 1(Mild to moderate loss) 9. Best Language: Aphasia (description/naming/reading) - 0(No aphasia) Initials: aa5 Signatures: Dispatcher [employer] Figueroa Huggins MD MD cha Calderon, Audri, RN RN aa5 Dianna Mckeon RN RN ss Martinez, Zaina zm Bowen, Kayla kb4 Sydnee Ivory RN es3 Corrections: (The following items were deleted from the chart) 10:11 10:10 Inserted saline lock: 18 gauge in left antecubital area, using aseptic kb4 technique. Flushed with 10 mL NS kb4 10:21 09:55 BP 115 / 64; Pulse 68bpm; Resp 15bpm; Spontaneous; Pulse Ox 99% RA; Temp aa5 97.8F Temporal; 64.5 kg Measured; aa5 10:24 09:55 PMHx: Seizure; aa5 aa5 11:23 09:33 Chief complaint: EMS states: left sided weakness and left facial droop aa5 that began at 0845 today. aa5
[2024-06-14 03:19] VITALS: BP 115/64; TEMP 97.8; O2SAT 99
--- NOTE | 2024-06-16 12:11 | EKG ---
Test Date: 2024-06-13 Test Time: 10:54:37 Remote Sensing Specialist: ADARSH MEASUREMENT RESULTS: Intervals: Rate: 74 WA: 140 QRSD: 66 QT: 380 QTc: 421 [place]: P: 51 WA: 140 QRS: 72 T: 39 INTERPRETIVE STATEMENTS: Normal sinus rhythm Normal ECG Compared to ECG 06/13/2024 09:53:33 No significant changes Electronically Signed On 06-16-24 12:10:21 CUSTOMER SERVICE ADVOCATE by Elliott Hardy
--- NOTE | 2024-06-16 12:12 | EKG ---
Test Date: 2024-06-13 Test Time: 09:53:33 Conventions Reservationist: CAMILO MEASUREMENT RESULTS: Intervals: Rate: 77 NE: 150 QRSD: 74 QT: 382 QTc: 432 [place]: P: 51 NE: 150 QRS: 82 T: 59 INTERPRETIVE STATEMENTS: Normal sinus rhythm Normal ECG No previous ECG available for comparison Electronically Signed On 06-16-24 12:10:43 PERCUSSION INSTRUMENT TUNER by Elliott Hardy
== END 2024-06-13 11:11 | disposition short-term general hospital (02) ==
LOC: ER 09:25
DX: I63.9 Cerebral infarction, unspecified (principal); R53.1 Weakness; R29.705 NIHSS score 5
CPT/HCPCS: 36415; 70450; 70496; 70498; 80048; 80076; 82565; 83735; 83880; 84484; 85025; 85610; 92977; 93005; 96361; 96374; 96375; 99285; J2405; J3101; J7030; Q9967